=== PATIENT | male | born 1960 | race Caucasian/White ===

== ENCOUNTER 2016-12-05 16:26 | Emergency (ER) | payer MEDICAID ==
[~2016-12-05] VITALS: Ht 175.3 cm; Wt 62.9 kg
[2016-12-05] MEDS ORDERED: LIDOCAINE 1%, 20ML SQ ONE (18:00)
[2016-12-05] MEDS ORDERED: DIPH,PERTUSS(ACELL),TET VAC/PF 0.5 ML IM-VACC ONE ×2 (18:00→18:03)
[2016-12-05] MEDS ORDERED: LIDOCAINE 1%, 20ML ONE (18:03)
[2016-12-05] MEDS ORDERED: BACITRACIN ZINC OINT 500U/GM, 0.9 GM ONE (18:44)
[2016-12-05] MEDS ORDERED: IBUPROFEN 200 MG TABLET ONE (18:44)
[2016-12-05] MEDS ORDERED: IBUPROFEN 200 MG TABLET PO ONE (19:00)
[2016-12-05 19:04] VITALS: BP 128/78
== END 2016-12-05 19:06 | disposition home or self-care (01) ==
LOC: ED 19:00
DX: S51.812A Laceration without foreign body of left forearm, initial encounter (principal); M10.9 Gout, unspecified; J45.909 Unspecified asthma, uncomplicated; M19.90 Unspecified osteoarthritis, unspecified site; W26.0XXA Contact with knife, initial encounter; Y93.89 Activity, other specified; Y92.89 Other specified places as the place of occurrence of the external cause; Y99.8 Other external cause status; Z87.891 Personal history of nicotine dependence
CPT/HCPCS: 12001; 90471; 90715

== ENCOUNTER → 2018-03-13 | Outpatient (CLI) | payer MEDICAID | END | disposition home or self-care (01) | LOC: RAD 12:48 | PROVIDERS: ATTEND Neurological Surgery | DX: M43.12 Spondylolisthesis, cervical region (principal); M47.22 Other spondylosis with radiculopathy, cervical region; M50.123 Cervical disc disorder at C6-C7 level with radiculopathy | CPT/HCPCS: 72052 ==